=== PATIENT | female | born 1955 | race Caucasian/White ===

== ENCOUNTER 2020-09-27 12:15 | Day surgery (SDC) | payer BC ==
[~2020-09-27] VITALS: Ht 160 cm; Wt 56.5 kg
[~2020-09-27 12:15] MED LIST: ASPI325 PO; CETI5 PO; CRUTCH4 XX; Calcium + Vita1 EACH PO; DHEA PO; FOLGARD TABLET1 EACH PO; HORMONE CREAM; HORMONE PO; MULVITMIND PO; Norco 10-325 T1 EACH PO; STRONTIUM CHLORI1 GM PO; Super B Comple150 MG PO
== END 2020-09-27 14:25 | disposition home or self-care (01) ==
LOC: ORSCSDS 12:15
PROVIDERS: Surgery
PROC: 0DJD8ZZ Inspection of Lower Intestinal Tract, Via Natural or Artificial Opening Endoscopic (ICD-10-PCS; principal; 2020-09-27 13:30)
DX: Z12.11 Encounter for screening for malignant neoplasm of colon (principal); K57.30 Diverticulosis of large intestine without perforation or abscess without bleeding; E78.00 Pure hypercholesterolemia, unspecified; E55.9 Vitamin D deficiency, unspecified; Z87.891 Personal history of nicotine dependence; Z79.899 Other long term (current) drug therapy
CPT/HCPCS: J2405; J2704; J7120